=== PATIENT | male | born 1995 | race Two or more races ===

== ENCOUNTER 2017-02-10 19:59 | Emergency (ER) | payer OTHER ==
[~2017-02-10] VITALS: Ht 167.6 cm; Wt 59.0 kg
[2017-02-10 19:59] VITALS: BP 112/82
[~2017-02-10 19:59] MED LIST: DIVA500T54 PO; LEVE500T9 PO
--- NOTE | 2017-02-10 20:28 | NUR ---
PATIENT RECEIVED FROM HOME WITH FAMILY. PT C/O REDNESS/ITCHY/BLISTERS ON BLE/BUE/ABDOMEN/GROIN AREA. NO SIGNS OF SOB OR DSITRESS. A/O X4 ABLE TO MAKE NEEDS KNOWN. FAMILY STATES THAT MORE THAN ONE MEMBER OF THE HOUSEHOLD HAS THESE SYMTOMS. AWAITING
--- NOTE | 2017-02-10 20:30 | NUR ---
VITAL SIGNS STABLE TEMP: 97.8 HR 61 02 100% BP 144/76.
== END 2017-02-10 20:41 | disposition home or self-care (01) ==
LOC: ER 20:03
DX: B86 Scabies (principal); J45.909 Unspecified asthma, uncomplicated
CPT/HCPCS: 99282; A4606; Z7610

== ENCOUNTER 2017-09-30 19:59 | Emergency (ER) | payer OTHER ==
[~2017-09-30] VITALS: Ht 170.2 cm; Wt 59.0 kg
[2017-09-30 20:08] VITALS: BP 145/79
== END 2017-09-30 21:00 ==
LOC: ER 20:03
DX: H60.92 Unspecified otitis externa, left ear (principal); J45.909 Unspecified asthma, uncomplicated
CPT/HCPCS: 99283; A4606; Z7610

== ENCOUNTER 2017-11-05 22:15 | Emergency (ER) | payer OTHER ==
[~2017-11-05] VITALS: Ht 170.2 cm; Wt 59.9 kg
[2017-11-05 22:35] VITALS: BP 141/102
== END 2017-11-05 23:03 | disposition home or self-care (01) ==
LOC: ER 22:19
DX: G40.909 Epilepsy, unspecified, not intractable, without status epilepticus (principal); J45.909 Unspecified asthma, uncomplicated; Z76.0 Encounter for issue of repeat prescription; Z79.899 Other long term (current) drug therapy
CPT/HCPCS: 99283; A4606; Z7610

== ENCOUNTER 2019-02-02 17:45 | Emergency (ER) | payer OTHER ==
[~2019-02-02] VITALS: Ht 170.2 cm; Wt 61.7 kg
--- NOTE | 2019-02-02 18:00 | NUR ---
PT CAME INTO THE ED C/O RIGHT FOOT PAIN AND SWELLING,INJURED WHILE PLAYING SOCCER THIS MORNING. PT AAOX4, VSS, BRAETHING EVEN AND UNLABORED ON ROOM AIR W/ NAD NOTED. PT CONNECTED TO THE MONITOR AND POX
[2019-02-02] MEDS ORDERED: HYDROCODONE/APAP 5/325MG 1 EACH TABLET PO ONE (19:00)
[2019-02-02] MEDS ORDERED: HYDROCODONE/APAP 5/325MG 1 EACH TABLET ONE (19:26)
[2019-02-02 20:02] VITALS: BP 121/83
== END 2019-02-02 20:03 | disposition home or self-care (01) ==
LOC: ER 17:48
DX: S90.111A Contusion of right great toe without damage to nail, initial encounter (principal); R56.9 Unspecified convulsions; J45.909 Unspecified asthma, uncomplicated; Z79.899 Other long term (current) drug therapy; W50.1XXA Accidental kick by another person, initial encounter; Y93.66 Activity, soccer; Y92.39 Other specified sports and athletic area as the place of occurrence of the external cause; Y99.8 Other external cause status
CPT/HCPCS: 73660-TC

== ENCOUNTER 2020-03-17 12:09 | Emergency (ER) | payer OTHER ==
[~2020-03-17] VITALS: Ht 170.2 cm; Wt 63.5 kg
--- NOTE | 2020-03-17 12:28 | NUR ---
pt placed on room c/o R knee pain since ast night, while on soccer practice states heard a popping sound while he was running. pain unresolved w/ otc pain meds. pt denies any other injury. no obvious deformity noted. awaiting md yoo.
--- NOTE | 2020-03-17 12:40 | NUR ---
dr conway at bedside for eval.
--- NOTE | 2020-03-17 14:42 | NUR ---
knee immobilizer applied. Crutches dispensed. Pt instructed on proper use of crutches. Patient able to demonstrate correct use of crutches. Patient discharged to home in stable condition. Written and verbal after care instructions given. Patient verbalizes understanding of instruction.
[2020-03-17 14:43] VITALS: BP 134/76
== END 2020-03-17 14:44 | disposition home or self-care (01) ==
LOC: ER 12:10
DX: S89.91XA Unspecified injury of right lower leg, initial encounter (principal); M25.461 Effusion, right knee; J45.909 Unspecified asthma, uncomplicated; Z79.899 Other long term (current) drug therapy; X50.1XXA Overexertion from prolonged static or awkward postures, initial encounter; Y93.66 Activity, soccer; Y92.89 Other specified places as the place of occurrence of the external cause; Y99.8 Other external cause status
CPT/HCPCS: 73564-TC

== ENCOUNTER 2021-05-11 19:23 | Emergency (ER) | payer OTHER ==
[~2021-05-11] VITALS: Ht 170.2 cm; Wt 66.7 kg
--- NOTE | 2021-05-11 19:50 | NUR ---
BIBS THIS 25YO MALE WITH CC OF L ELBOW PAIN S/O WORK OUT YESTERDAY. PLACED COMFORTABLY IN BED. VITALS CHECKED
--- NOTE | 2021-05-11 20:11 | NUR ---
ELECTROMAGNET CRANE OPERATOR AT BEDSIDE FOR XRAY OF LEFT ELBOW
[2021-05-11] MEDS ORDERED: IBUP-1955 PO (21:53)
[2021-05-11] MEDS ORDERED: KETOROLAC TROMETHAMINE INJ 30 MG/ML VIAL IM ONE (22:00)
[2021-05-11] MEDS ORDERED: KETOROLAC TROMETHAMINE 15 MG/ML VIAL ONE (22:00)
--- NOTE | 2021-05-11 22:13 | NUR ---
Patient discharged to home in stable condition. RX Written and verbal after care instructions given. Patient verbalizes understanding of instruction. PT ambulatory with a steady gait
[2021-05-11 22:21] VITALS: BP 119/72
== END 2021-05-11 22:22 | disposition home or self-care (01) ==
LOC: ER 19:28
DX: M77.8 Other enthesopathies, not elsewhere classified (principal); M25.522 Pain in left elbow; J45.909 Unspecified asthma, uncomplicated; Z98.890 Other specified postprocedural states; Z79.899 Other long term (current) drug therapy
CPT/HCPCS: 73080; 96372; 99283; J1885